=== PATIENT | female | born 1975 | race Caucasian/White ===

== ENCOUNTER → 2018-03-25 06:02 | Outpatient (CLI) | payer OTHER, SELFPAY ==
--- NOTE | 2018-03-25 06:32 | MRI_ITS ---
STUDY: MRI LUMBAR SPINE WITHOUT CONTRAST REASON FOR EXAM: Female, 43 years old. Back pain and numbness in bilateral legs. TECHNIQUE: Standardized fat and water weighted pulse sequences were obtained in the sagittal and axial planes. COMPARISON: None FINDINGS: T11-T12: (Sagittal only). Normal endplates. Normal disc height, hydration and morphology. Normal central canal and bilateral intervertebral neural foramina. T12-L1: (Sagittal only). Normal endplates. Normal disc height, hydration and morphology. Normal central canal and bilateral intervertebral neural foramina. Normal lumbar lordosis. There is no substantial scoliosis. Normal conus medullaris that terminates at the T12-L1 disc L1-2: Normal endplates. Normal disc height, hydration and morphology. Normal bilateral facet joints. Normal central canal and bilateral lateral recesses. Normal bilateral intervertebral neural foramina. L2-3: Normal endplates. Normal disc height, hydration and morphology. Normal bilateral facet joints. Normal central canal and bilateral lateral recesses. Normal bilateral intervertebral neural foramina. L3-4: Normal endplates. Normal disc. Normal central canal and bilateral recesses. Normal normal bilateral L4-5: Normal endplates. Minimal disc space loss of disc hydration. Mild central canal stenosis. The AP canal diameter is. This is secondary to developmental short pedicles. Moderate asymmetric degenerative facet arthropathy. Mild fluid distention of the facet joints. Normal bilateral intervertebral neural foramina. L5-S1: Normal endplates. Normal disc height, hydration. No and bilateral lateral recesses. Mild asymmetric degenerative facet arthropathy. Normal bilateral foramina. Normal visualized sacral ala. Normal visualized paraspinous soft tissue structures. MRI/Spine Lumbar (Routine) IMPRESSION: 1. Mild central canal stenosis at L4-L5 disc level secondary to developmentally short pedicles and moderate asymmetric degenerative facet arthropathy. 2. Mild asymmetric L5-S1 degenerative facet arthropathy. 3. No MRI evidence of lumbar extruded disc fragment or nerve root displacement. Electronically Signed: Neo Ching MD at 12:17 EDT , Service support ,
== END ==
PROVIDERS: Family Provider Family Medicine; PCP Family Medicine; Visit Provider Chiropractor
DX: M51.36 Other intervertebral disc degeneration, lumbar region (principal); M99.03 Segmental and somatic dysfunction of lumbar region
CPT/HCPCS: 72148

== ENCOUNTER 2021-12-03 06:45 | Day surgery (SDC) | payer OTHER, SELFPAY ==
[2021-11-29 10:20] LABS: Hematocrit 31.1 % (37-47); Hemoglobin 9.1 g/dL (12.0-15.0); Mean Corp Hgb Conc 29.3 g/dL (32-36); Mean Corpuscular Hgb 20.9 pg (27.0-32.0); Mean Corpuscular Volume 71.3 fL (81-99); Platelet Count 414 K/mm3 (150-450); RBC Distribution Width CV 15.9 % (11.6-14.6); RBC Distribution Width SD 40.8 fl (35.1-43.9); Red Blood Count 4.36 M/mm3 (4.2-5.4); White Blood Count 8.6 K/mm3 (4.4-11.0)
[2021-12-03] VITALS (9 sets, daily range): BP systolic 141–170; BP diastolic 73–93; PULSE 61–76; RESP 15–66; TEMP 36.2–36.8; O2SAT 96–100; BMI 41.6
--- NOTE | 2021-12-03 06:56 | PCM.HP.BLA ---
History and Physical Date of Admission: 12/03/21 Date: 12/03/2021 Name: FELIPA SEAY Age: 46 Date of : 1975 Surgical History and Physical Date: 12/03/2021 Name: FELIPA SEAY Age: 46 Date of : 1975 Felipa Seay, a 46 year old female 2 0 1 0 2, presents for Hysteroscopy, D, endometrial ablation Gust[facility] on December 03, 2021 at . -- Felipa is here for a hysteroscopy D&C gustabo ablation. No concerns, all consents signed MEDICATIONS HISTORY: Patient is also takin. ProAir HFA 90 mcg/actuation HFA aerosol inhaler, prn 2. sertraline 50 mg tablet, daily ALLERGIES: Aspirin, Edema Infections - Chicken pox Illnesses - Allergies, Asthma, Depression/Anxiety Accidents - Fell 2012 and ruptured patella tendon Hospitalizations - see surgery Review of Systems: GENERAL - Denies fever, or chills SKIN - Denies skin changes EYES - Denies visual changes EARS - Denies difficulty hearing NOSE - Denies nasal congestion or bleeding MOUTH - Denies sore throat or difficulty swallowing NECK - Denies pain or swelling RESPIRATORY - Denies shortness of breath or wheezing CARDIOVASCULAR - Denies palpitations or chest pain GASTROINTESTINAL - Denies nausea, vomiting, diarrhea, constipation GENITOURINARY - Denies dysuria, frequency of urination, incontinence of urine MUSCULOSKELETAL - Denies joint or muscle pain NEUROLOGICAL - Denies localized numbness or weakness PSYCHIATRIC - Denies depression or anxiety ENDOCRINE - Denies heat or cold intolerance, weight loss or gain HEMATO-IMMUNOLOGIC - Denies excessive bleeding with cuts SOCIAL HISTORY: Alcohol Use - RARELY Smoking - denies smoking Diet - no special diet Lifestyle - high stress lifestyle and Exercise - joined gym, biking and weight machines Employer - [employer] Job Description - Customer care cordinator Illicit Drug Use - denies use of street drugs Sexual Activity - Hours Worked - 40 hours per week Spouse-Sig Other Name - Cheko Spouse-Sig Other Occupation - Steel Hanger Children Name(s) - Myriam Vallejo Control - vasectomy FAMILY HISTORY: Family history of DM II, Heart Disease and Uterine cancer. Mother: DM II, Hypertension and Uterine cancer. Father: DM II, Heart Disease and Hypertension. MENSTRUAL HISTORY: LMP Known?- DefiniteAmount/Duration - 7 to 10 days, Regularity - Regular, Frequency - monthly days, LMP - 11/25/21, Age Onset Menarche - 14 PAST PREGNANCIES: Total Pregnancies - 3; Full Term Pregnancies - 2; Premature - 0; Abortions, Induced - 0; Abortions, Spontaneous - 1; Ectopics - 0; Multiple Births - 0; Living Children - 2 SURGICAL HISTORY: 1. [place] Teeth ; - 2. L foot, heal spur ; - 3. Patella tendon repair/replacement, 06/15 ; - 4. 11/03/2017 spinal fusion ; - PHYSICAL EXAM BP- 138/88 Sitting, Left arm, large cuff Weight- 245.34542 lbs Height- 62.75 inch BMI:[id number] CONSTITUTIONAL - NAD, well nourished, and well developed SKIN - No rash, lesions, or ulcers HEENT - Normocephalic, PERRLA, EOMI NECK - No nodes, no nuchal rigidity and thyroid normal size and texture LYMPH NODES - Palpation of lymph nodes in neck and groins within normal limits ABDOMEN - Without hepatosplenomegaly, distention, masses, rebound, or guarding; normal bowel sounds; no hernias EXTREMITIES - No edema or calf tenderness NEUROLOGICAL - Cranial nerves II-XII grossly intact PSYCHIATRIC - A and O to time, place, person, mood and affect External Genital Vagina - non-tender without lesions Urethra/Urethral Meatus - non-tender Bladder - non-tender Vagina - vaginal gutierrez are pink and moist without loss of rugae and no evidence of atropy Cervix - without cervical motion tenderness and has normal size and features without evident lesions Uterus - 5-6 cm in size, mobile and nontender Adnexa - clear without masses or tenderness ASSESSMENT/PLAN: 1. Abnormal Uterine And Vaginal Bleeding, Unspecified has abnormal uterine bleeding with periods for past 4 weeks. Typically with cycles that are monthly and regular. Educated patient on abnormal uterine bleeding and its risks and possible diagnoses. Exam benign. Labs wnl. EMB wnl. Educated pt on tx options r/b/a, pt elects for ablation 2. Encounter For Other Preprocedural Examination Patient scheduled for hysteroscopy, dilation and curettage, endometrial ablation via Gust[facility] for abnormal uterine bleeding Educated patient on risk benefits alternatives. Patient stated understanding and wished to proceed. All questions were answered and consent was signed. Discussed postoperative recovery, pain after procedure, discharge
[2021-12-03 07:05] LABS: Internal QC Validated? YES +Cl - CLEAR BKGD; Pregnancy, Urine Negative Negative
[2021-12-03] MEDS: Lactated Ringers 1,000 ML 15 ML IV (07:38)
--- NOTE | 2021-12-03 08:35 | EMB_PTH ---
PATIENT: ASHTYN SEAY [place] [facility] [place][id number] AGE/SX: 46/F ROOM: RE12/03/[address]: Dr. Bernardino Reed MD : 1975 BED: DIS: 12/03/2021 SPEC #: [id number] RECD: 12/03/21 10:20 STATUS: NATALIO REYarely #: [id number] ORESTES: 12/03/21 08:[address]: Bernardino Reed DEPT: SURGICAL PATHOLOGY RECD BY: Melita Blank ENTERED: 12/03/21 10:51 SP TYPE: ENDOM BX/C MAGDIEL DR: MD Dr. Campos Jaramillo MD Tissues: Endometrium, NOS Procedures: Surgery Specimen Level IV HEADER OPERATION: Hysteroscopy, D & C Mariana PRE-OP DIAGNOSIS: Abnormal uterine and vaginal bleeding TISSUE SUBMITTED: Endometrial curettings MICROSCOPIC DIAGNOSIS Endometrium, curettings: Mildly disordered proliferative endometrium with focal glandular breakdown. Rare fragments of benign superficial squamous mucosa and endocervical mucosa. AM:osbaldo 12/04/2021 MICROSCOPIC DESCRIPTION Slides are reviewed. GROSS DESCRIPTION Received in fixative is one container labeled with the patient's name and designated endometrial curettings. The specimen consists of multiple fragments of pink hemorrhagic soft tissue that in aggregate measure 3 x 2.5 x 0.3 cm. The specimen is totally submitted in one cassette. / SJ:osbaldo 12/03/2021 TC:5 CPT: 49347
--- NOTE | 2021-12-03 09:01 | PCM.DC ---
Discharge Instructions Diet Discharge Diet: No restrictions Activity Discharge Activity: Return to Normal Activity, May Drive and May Shower May resume sexual activity in: 4-6 weeks Weight Bearing Status: Weight bearing as tolerated Dressing / Incision Call your doctor if your incision/area has: Continuous Slow Oozing and Foul Smelling Discharge Call your doctor if you observe: Fever of 101 or Higher, Shortness of breath and Chest pain Follow Up Care Please Follow Up With: Bernardino Reed MD When: 2 weeks postoperatively Test Results: Test results from this visit will be discussed in further detail at your follow-up appointment, if applicable. Discharge Plan Admission Attending Provider: Bernardino Reed Primary Care Provider: Campos Soni Consulting Providers: Elio Hart Discharge Orders/Prescriptions Prescriptions: No Action naproxen sodium [Aleve] 220 mg Tablet 220 mg PO Q12H PRN (Reason: Pain) RF: 0 albuterol sulfate [ProAir HFA] 90 mcg/actuation Hfa Aerosol Inhaler 1 inh INHALATION Q6H PRN (Reason: SOB) RF: 0 sertraline [Zoloft] 50 mg Tablet 50 mg PO DAILY RF: 0 Disposition Discharge Orders: Discharge Patient (Routine); Ordered 12/03/21 Ordered By: Dr. Bernardino Reed
--- NOTE | 2021-12-03 09:01 | PCM.OPRPT ---
Report of Operation Date of Procedure: 12/03/21 Pre-Operative Diagnosis: Abnormal uterine bleeding Post-Operative Diagnosis: Abnormal uterine bleeding Surgery/Procedure Performed:: Hysteroscopy, dilation and curettage, endometrial ablation via Mariana Description of Surgical Findings:: Surgeon: Bernardino Reed MD Anesthesia: MAC EBL: 5 cc Urine output: 50 cc IV fluids: 500 cc Complications: None Specimen: Endometrial curettings Findings: Hysteroscopy with no pathology noted. Mariana endometrial device set to 6.5 cm cavity length. Post procedure hysteroscopy with no new pathology Consent: Patient with abnormal uterine bleeding desires hysteroscopy, dilation and curettage, endometrial ablation via Mariana. Patient understands the risk of the procedure include but are not limited to visceral or vascular injury, prolonged hospitalization, blood loss and need for transfusion, reoperation. Patient state understanding and wished to proceed. All questions were answered and consent was signed. Procedure: Patient was brought back to the OR where MAC anesthesia was found to be adequate. Patient was prepared and draped in a dorsal lithotomy position with yellowfin stirrups. A weighted speculum was placed in the posterior aspect of the vagina and cervical dilators were used to dilate the cervix. Hysteroscope was inserted and above findings were noted. Sharp endometrial curetting was performed in all quadrants and sent to pathology. Mariana ablation device cavity length was set to 6.5 cm. Mariana device was inserted under direct visualization. Mariana safety test were passed x2. 120 seconds of endometrial ablation performed. Mariana device was removed under direct visualization. Post procedure hysteroscopy was performed and above findings were noted. Good hemostasis was noted. All counts were correct x2. Patient tolerated the procedure well and was brought to recovery in a stable condition.
--- NOTE | 2021-12-03 09:05 | EKG12_ITS ---
Test Reason : POST OP Blood Pressure : / mmHG Vent. Rate : 070 BPM Atrial Rate : 070 BPM P-R Int : 184 ms QRS Dur : 142 ms QT Int : 462 ms P-R-T Axes : 053 -20 081 degrees QTc Int : 498 ms Normal sinus rhythm Left bundle branch block Abnormal ECG No previous ECGs available Confirmed by ELIZABETH MENDEZ, DIYA ([id number]), online editor MOHAMUD CARCAMO ([id number]) on 12/06/2021 11:24:12 AM Referred By: Bernardino Reed Confirmed By:MARK JOHNSON MD
== END 2021-12-03 23:59 | disposition home or self-care (01) ==
LOC: SDC 06:45 → AC 06:45
PROVIDERS: Anesthesiology; PCP Family Medicine; Referring Provider Obstetrics & Gynecology; Visit Provider Obstetrics & Gynecology
PROC: 0U5B8ZZ Destruction of Endometrium, Via Natural or Artificial Opening Endoscopic (ICD-10-PCS; CPT 58558; principal; 2021-12-03 08:20)
DX: N93.9 Abnormal uterine and vaginal bleeding, unspecified (principal); F41.9 Anxiety disorder, unspecified; F32.A Depression, unspecified; K21.9 Gastro-esophageal reflux disease without esophagitis; M19.90 Unspecified osteoarthritis, unspecified site; Z79.899 Other long term (current) drug therapy
CPT/HCPCS: 58563; 00952; 36415; 81025; 85027; 86850; 86900; 86901; 87426; 88305; 93005; C9803; J7120